=== PATIENT | female | born 1990 | race Caucasian/White ===

== ENCOUNTER 2016-08-14 14:50 | Inpatient (IN) | payer OTHER ==
[~2016-08-14] VITALS: Ht 172.7 cm; Wt 154.5 kg
[~2016-08-14 14:50] MED LIST: MOTRIN 800800 MG/TAB PO; PERCOCET 325 MG1 TAB PO; PRENATAL MVI
[2016-09-20] VITALS (19 sets, daily range): BP systolic 118–142; BP diastolic 62–100; PULSE 82–114; TEMP 97.7–98.4
[2016-09-20 07:13] LABS: BASO % 0.5 % (0.0-2.0); EOS # 0.1 (0.0-0.7); EOS % 1.3 % (0-4.0); GRAN # 5.4 (1.4-6.5); LYMPH # 1.8 (1.2-3.4); LYMPH % 22.9 % (20.0-51.0); MEAN CELL VOLUME 89 fl (80.0-100.0); MEAN CORPUSCULAR HGB CONC 33 g/dl (33.0-37.0); MEAN PLATELET VOLUME 11.1 fl (7.4-10.4); MONO # 0.3 (0.1-0.6); MONO % 4.4 % (1.7-9.3); PLATELET COUNT 190 K/mm3 (130-400); RED BLOOD COUNT 4.02 M/mm3 (4.10-5.30); REDCELL DISTRIBUTION WIDTH-CV 14.5 % (11.5-14.5); WHITE BLOOD COUNT 7.8 K/mm3 (4.8-10.8)
[2016-09-20 07:15] LABS: HEMATOCRIT 35.7 % (37.0-47.0); HEMOGLOBIN 11.7 g/dl (12.5-16.0); MEAN CORPUSCULAR HEMOGLOBIN 29 pg (27.0-31.0)
[2016-09-21] VITALS: BP 132/67; PULSE 97; TEMP 97.4
[2016-09-21 04:05] VITALS: BP 118/60; PULSE 86; TEMP 97.6
[2016-09-21 07:10] VITALS: BP 117/65; PULSE 93; TEMP 97.7
[2016-09-21 08:40] LABS: HEMATOCRIT 34.5 % (37.0-47.0); HEMOGLOBIN 11.2 g/dl (12.5-16.0)
[2016-09-21 16:05] VITALS: BP 133/71; PULSE 89; TEMP 97.4
[2016-09-21 20:45] VITALS: BP 111/64; PULSE 89; TEMP 98.3
[2016-09-22] VITALS: BP 122/70; PULSE 68; TEMP 98.8
[2016-09-22 07:10] VITALS: BP 132/77; PULSE 96; TEMP 98.1
[2016-09-22] MEDS ORDERED: IBU600 MG PO (09:46)
[2016-09-22] MEDS ORDERED: PERCOCET 325 MG1 TAB PO (09:47)
[2016-09-22 15:00] VITALS: BP 127/72; PULSE 104; TEMP 98.2
[2016-09-22 19:15] VITALS: BP 97/78; PULSE 101; TEMP 98
[2016-09-23 07:00] VITALS: BP 142/82; PULSE 72; TEMP 98.2
== END 2016-09-23 10:01 | disposition home or self-care (01) | DRG 766 ==
LOC: OB 09-20 05:38 → LDR 09-20 07:16 → OB 09-23 10:01 → EDSTATUS 09-25 07:15 → LDRO 09-25 14:49
PROVIDERS: Obstetrics & Gynecology
PROC: 10D00Z1 Extraction of Products of Conception, Low, Open Approach (ICD-10-PCS; principal; 2016-09-20)
DX: O34.211 Maternal care for low transverse scar from previous cesarean delivery (principal); N85.8 Other specified noninflammatory disorders of uterus; Z3A.39 39 weeks gestation of pregnancy; Z37.0 Single live birth
CPT/HCPCS: J0690; J1885; J2270; J2405; J2590; J2765; J7120

== ENCOUNTER → 2016-10-09 | Outpatient (CLI) | payer OTHER ==
[~2016-10-09] MED LIST changes: +IBU600 MG PO
== END ==
LOC: COL.RAD 09:35
DX: M23.222 Derangement of posterior horn of medial meniscus due to old tear or injury, left knee (principal); M25.562 Pain in left knee; M23.52 Chronic instability of knee, left knee; Z98.890 Other specified postprocedural states